=== PATIENT | female | born 1995 | race African-American/Black ===

== ENCOUNTER 2018-04-24 00:51 | Emergency (ER) | payer MEDICAID ==
[~2018-04-24] VITALS: Ht 170.2 cm; Wt 70.5 kg
[2018-04-24 00:56] VITALS: Ht 170.2 cm; Wt 70.5 kg
[2018-04-24] MEDS ORDERED: ALBUTEROL SULF8.5 GM (00:59)
[2018-04-24 01:50] VITALS: BP 132/81
== END 2018-04-24 01:50 | disposition home or self-care (01) ==
LOC: D.ER 00:51
DX: R07.81 Pleurodynia (principal)

== ENCOUNTER → 2018-05-15 13:10 | Outpatient (CLI) | payer MEDICAID ==
[2018-04-24 00:56] VITALS: BMI 24.3
[~2018-05-15 13:10] MED LIST: ALBUTEROL SULF8.5 GM
== END | disposition home or self-care (01) ==
LOC: D.RAD 13:10
PROVIDERS: ATTEND Family Medicine
DX: S69.91XA Unspecified injury of right wrist, hand and finger(s), initial encounter (principal); X58.XXXA Exposure to other specified factors, initial encounter